=== PATIENT | female | born 1950 | race American Indian/Alaskan Native ===

== ENCOUNTER 2018-12-15 09:44 | Day surgery (SDC) | payer MEDICARE ==
[~2018-12-15 09:44] MED LIST: OMNIPAQUE 300 MG/50 ML (CATH LAB) IV ONE
[2018-12-15] MEDS ORDERED: DILAUDID IV PRN (10:54)
[2018-12-15] MEDS ORDERED: ZOFRAN IV PRN (10:54)
--- NOTE | 2018-12-15 10:54 | Anesthesia Consultation ---
Anesthesia Consult and Med Hx Date of service: 12/15/18 - Airway Anesthetic Teeth Evaluation: Good ROM Head & Neck: Adequate Mental/Hyoid Distance: Adequate Mallampati Class: Class II Intubation Access Assessment: Good - Pulmonary Exam CTA: Yes - Cardiac Exam Cardiac Exam: RRR - Pre-Operative Health Status ASA Pre-Surgery Classification: ASA3 Proposed Anesthetic Plan: General (Had cardiac stent place 1 month ago , cardiac clearance on chart) - Pulmonary Hx Smoking: Yes (STOPPED X 1 MONTH) Hx Sleep Apnea: No ([place] PRE SCREEN LOW RISK) - Cardiovascular System Hx Hypertension: Yes (X 20 YRS) Hx Coronary Artery Disease: Yes - Central Nervous System Hx Back Pain: Yes - Hematic Hx Anemia: Yes Hx Sickle Cell Disease: Yes - Other Systems Hx Substance Use: Yes (MARIJUANA DAILY)
--- NOTE | 2018-12-15 10:54 | Anesthesia Day of Surgery ---
Anesthesia Day of Surgery - Day of Surgery Patient Examined: Yes Patient H&P Reviewed: Yes Patient is NPO: Yes
[2018-12-15] MEDS ORDERED: ANCEF/STERILE WATER 2 GM/20 ML 2 GM/20 ML SYRINGE IV NR (11:00)
[2018-12-15 11:01] LABS: Hemoglobin 10.4 gm/dl (10.1-14.3)
[2018-12-15] MEDS ORDERED: VERSED IV ONE (11:10)
--- NOTE | 2018-12-15 11:45 | Post Operative Note ---
Date of procedure: 12/15/18 Pre-op diagnosis: + cytology Post-op diagnosis: same Findings: see note Procedure: cysto rpgs bx Anesthesia: GETA Surgeon: SANJUANA JARAMILLO Estimated blood loss: minimal Pathology: list (bladder) Specimen disposition: to lab Condition: stable Disposition: PACU
[2018-12-15] MEDS ORDERED: XYLOCAINE MPF 2% ONE (11:46)
--- NOTE | 2018-12-15 11:46 | Discharge Summary ---
Short Stay Discharge Plan Activity: other (no straining ) Weight Bearing Status: Full Weight Bearing Diet: low fat, low cholesterol Special Instructions: other (inc fluids ) Durable Medical Equipment Needed Upon Discharge: other (teach ficsher care ) Follow up with: PCP,FOLLOW UP, MD [Primary Care Provider] - 7 Days SANJUANA JARAMILLO MD [Staff Physician] - 12/17/18
[2018-12-15] MEDS ORDERED: SUBLIMAZE ONE (11:47)
[2018-12-15] MEDS ORDERED: DIPRIVAN 10 MG/ML IV ONE (11:47)
[2018-12-15] MEDS ORDERED: VERSED ONE (11:47)
[2018-12-15] MEDS ORDERED: LACTATED RINGERS 1,000 ML IV SCH (12:00)
[2018-12-15] MEDS ORDERED: ZOFRAN ONE (12:32)
[2018-12-15] MEDS ORDERED: DECADRON ONE (12:32)
--- NOTE | 2018-12-15 13:34 | Fluoroscopy Report ---
5 fluoroscopic images submitted Indication: Intraoperative localization Impression: 5 images of the abdomen were submitted for documentation purposes with radiology involve ment. Bilateral retrograde pyelograms were performed. Please refer to the operative note for complet e details. Fluoroscopic time: 0.2 minutes Signer Name: Earl Boggs MD Signed: 12/15/2018 1:30 PM Workstation Name: [id number]
--- NOTE | 2018-12-15 13:39 | Operative Report ---
PREOPERATIVE DIAGNOSIS: Possible bladder cancer, positive cytology. POSTOPERATIVE DIAGNOSIS: Possible bladder cancer, positive cytology. No evidence of cancer. PROCEDURE: Cystoscopy, random biopsies, retrograde. SURGEON: Dharmesh Darby MD ANESTHESIA: General. FINDINGS: This is a woman who had positive cytology and is a smoker. CT was basically unremarkable. She now presents for treatment. DESCRIPTION OF PROCEDURE: The patient was brought to the operating room and placed on the operating table. Following induction of anesthesia, placed in lithotomy position, prepped and draped in the usual sterile fashion. Cystourethroscopy showed normal bladder epithelium. Biopsies were taken. Retrograde showed some mild cystocele with a delicate collecting system and good drainage. The patient tolerated the procedure well. No significant complication. Lott was placed. She was brought to recovery in stable condition. JOB# [id number] ALEXUS/JOAQUINA
--- NOTE | 2018-12-15 17:54 | Post Anesthesia Evaluation ---
- Post Anesthesia Evaluation Patient Participated: Yes Airway Patent: Yes Stable Respiratory Function: Yes Nausea/Vomiting: No Temp > 96.8F: Yes Pain Manageable: Yes Adequeate Hydration: Yes Anesthesia Complications: No Block Receding Appropriately: Not Applicable Patient on Ventilator: No
[2018-12-15 19:14] VITALS: BP 122/68
== END 2018-12-15 09:45 | disposition home or self-care (01) ==
LOC: OR 09:44
PROVIDERS: ATTEND Urology
DX: N81.10 Cystocele, unspecified (principal); N32.89 Other specified disorders of bladder; I25.10 Atherosclerotic heart disease of native coronary artery without angina pectoris; E78.00 Pure hypercholesterolemia, unspecified; I10 Essential (primary) hypertension; K21.9 Gastro-esophageal reflux disease without esophagitis; M19.90 Unspecified osteoarthritis, unspecified site; Z79.899 Other long term (current) drug therapy; Z79.82 Long term (current) use of aspirin; Z87.891 Personal history of nicotine dependence; Z95.5 Presence of coronary angioplasty implant and graft; Z90.710 Acquired absence of both cervix and uterus; Z83.3 Family history of diabetes mellitus; Z82.49 Family history of ischemic heart disease and other diseases of the circulatory system; Z86.2 Personal history of diseases of the blood and blood-forming organs and certain disorders involving the immune mechanism
CPT/HCPCS: 36415; 52204; 74420; 85014; 85018; 88112; 88305; C1758; J0690; J1100; J2250; J2405; J2704; J3010; J7120; Q9967